=== PATIENT | female | born 1980 | race Caucasian/White ===

== ENCOUNTER → 2016-06-11 | Outpatient (CLI) | payer MEDICAID ==
[2016-06-11 10:15] LABS: Basophils # (auto) 0.1 uL; Basophils % (auto) 0.7 % (0.0-2.0); Eosinophils # (auto) 0.1 uL; Eosinophils % (auto) 1.2 % (0.0-7.0); Hematocrit 41.8 % (36.0-46.0); Hemoglobin 13.5 g/dL (12.2-16.2); Lymphocytes # (auto) 5.3 uL; Lymphocytes % (auto) 43.3 % (10.0-50.0); Mean Corpuscular Hemoglobin 27.8 pg (28.0-32.0); Mean Corpuscular Hgb Conc. 32.3 g/dL (32.0-36.0); Mean Corpuscular Volume 85.9 fL (80.0-100.0); Mean Platelet Volume 8.8 fL (7.4-10.4); Monocytes # (auto) 0.6 uL; Monocytes % (auto) 5.3 % (0.0-12.0); Neutrophils % (auto) 49.5 % (37.0-80.0); Platelet Count (auto) 243 10^3/uL (140-450); Red Cell Distribution Width 15.9 % (11.6-16.0); White Blood Cell 12.2 10^3/uL (4.4-10.8)
== END | disposition home or self-care (01) ==
LOC: LAB 09:54
PROVIDERS: ATTEND Obstetrics & Gynecology
DX: O99.810 Abnormal glucose complicating pregnancy (principal); Z3A.00 Weeks of gestation of pregnancy not specified
CPT/HCPCS: 36415; 82951; 85025; 85049

== ENCOUNTER 2016-06-13 16:25 | Observation (INO) | payer MEDICAID ==
[2016-06-14] MEDS ORDERED: PREN-96 PO (21:17)
== END 2016-06-13 17:40 | disposition home or self-care (01) | DRG 566 ==
LOC: LDRP 16:25
PROVIDERS: ADMIT Obstetrics & Gynecology; ATTEND Obstetrics & Gynecology
DX: O26.893 Other specified pregnancy related conditions, third trimester (principal); R10.9 Unspecified abdominal pain; Z3A.37 37 weeks gestation of pregnancy
CPT/HCPCS: 59025; 81002; G0378

== ENCOUNTER 2016-06-13 20:48 | Inpatient (IN) | payer MEDICAID ==
[~2016-06-13] VITALS: Ht 167.6 cm; Wt 81.6 kg
[2016-06-13] MEDS ORDERED: LACT. RINGERS/OXYTOCIN 20UNITS 1,000 ML IV SCH (20:58)
[2016-06-13] MEDS: LACTATED RINGER'S 1,000 ML IV SCH (20:58)
[2016-06-13] MEDS ORDERED: METHYLERGONOVINE MALEATE 0.2 MG/ML AMP IM PRN (21:00)
[2016-06-13] MEDS ORDERED: CARBOPROST TROMETHAMINE 250 MCG/1ML VIAL IM PRN (21:00)
[2016-06-13] MEDS ORDERED: DERMOPLAST 60ML BOTTLE TOP PRN (21:00)
[2016-06-13] MEDS ORDERED: NALBUPHINE HCL 10 MG/1ml INJECTION IV PRN (21:00)
[2016-06-13] MEDS ORDERED: LIDOCAINE 2%HCL (LOCAL ANESTH.) INJ 20ML MDV IJ ONE (21:00)
[2016-06-13] MEDS ORDERED: PROMETHAZINE HCL 25 MG/ML 1ML IV PRN (21:00)
[2016-06-13] MEDS ORDERED: WITCH HAZEL-GLYCERIN PAD TOP PRN (21:00)
[2016-06-13] MEDS ORDERED: PHISODERM TOP SOLN 240ML BTL TOP PRN (21:00)
[2016-06-13 21:43] LABS: Basophils # (auto) 0 uL; Basophils % (auto) 0.5 % (0.0-2.0); Eosinophils # (auto) 0 uL; Eosinophils % (auto) 0.4 % (0.0-7.0); Hematocrit 39.9 % (36.0-46.0); Hemoglobin 12.9 g/dL (12.2-16.2); Lymphocytes # (auto) 2.8 uL; Lymphocytes % (auto) 27.5 % (10.0-50.0); Mean Corpuscular Hemoglobin 27.9 pg (28.0-32.0); Mean Corpuscular Hgb Conc. 32.2 g/dL (32.0-36.0); Mean Corpuscular Volume 86.6 fL (80.0-100.0); Mean Platelet Volume 9.4 fL (7.4-10.4); Monocytes # (auto) 0.5 uL; Monocytes % (auto) 5.2 % (0.0-12.0); Neutrophils # (auto) 6.7 uL; Neutrophils % (auto) 66.4 % (37.0-80.0); Platelet Count (auto) 207 10^3/uL (140-450); Red Cell Distribution Width 15.5 % (11.6-16.0); White Blood Cell 10.1 10^3/uL (4.4-10.8)
[2016-06-13 22:00] LABS: Albumin 2.4 g/dL (3.4-5.0); BUN/Creatinine Ratio 12.3; Calcium 8.5 mg/dL (8.5-10.1); Potassium 3.8 mmol/L (3.5-5.1)
[2016-06-13 22:03] LABS: Bilirubin, Total 0.2 mg/dL (0.2-1.0); INR 0.97 (0.9-1.15); Partial Thromboplastin Time 25.9 sec (22.64-33.71); Total Protein 6.7 g/dL (6.4-8.2)
[2016-06-13] MEDS ORDERED: LIDOCAINE 2%HCL (LOCAL ANESTH.) INJ 20ML MDV ONE (22:19)
[2016-06-13] MEDS ORDERED: LACT. RINGERS/OXYTOCIN 20UNITS 1,000 ML IV ONE (22:19)
[2016-06-13] MEDS ORDERED: PHISODERM TOP SOLN 240ML BTL TOP ONE (22:19)
[2016-06-13] MEDS ORDERED: METHYLERGONOVINE MALEATE 0.2 MG/ML AMP IM ONE (22:19)
[2016-06-13] MEDS ORDERED: WITCH HAZEL-GLYCERIN PAD TOP ONE (22:19)
[2016-06-13] MEDS ORDERED: DERMOPLAST 60ML BOTTLE TOP ONE (22:19)
[2016-06-13] MEDS ORDERED: LACT. RINGERS/OXYTOCIN 20UNITS 500 ML IV ONE (23:06)
[2016-06-13] MEDS ORDERED: IBUPROFEN 600 MG TAB PO ONE (23:14)
[2016-06-14 02:40] VITALS: BP 114/74
[2016-06-14] MEDS ORDERED: ACETAMINOPHEN 325 MG TAB PO PRN (03:15)
[2016-06-14] MEDS ORDERED: IBUPROFEN 600 MG TAB PO PRN (03:15)
[2016-06-14] MEDS: LACTATED RINGER'S 1,000 ML IV SCH ×2 (04:58→12:58)
[2016-06-14 08:30] VITALS: BP 111/57
[2016-06-14 12:00] VITALS: BP 115/61
[2016-06-14] MEDS ORDERED: diphenhdrAMINE HCL 50 MG/1 ML VL ONE (12:08)
[2016-06-14] MEDS ORDERED: diphenhdrAMINE HCL 50 MG/1 ML VL IM ONE (12:15)
[2016-06-14 16:23] VITALS: BP 103/67
[2016-06-14 18:33] VITALS: BP 123/77
[2016-06-14] MEDS ORDERED: PREN-96 PO (21:17)
[2016-06-14 21:58] VITALS: BP 120/82
== END 2016-06-14 21:58 | disposition home or self-care (01) | DRG 560 ==
LOC: OBSVTOIN 20:48 → NUR 20:48 → LDRP 23:24
PROVIDERS: ADMIT Obstetrics & Gynecology; ATTEND Obstetrics & Gynecology
PROC: 10E0XZZ Delivery of Products of Conception, External Approach (ICD-10-PCS; principal; 2016-06-13)
DX: O77.0 Labor and delivery complicated by meconium in amniotic fluid (principal); Z37.0 Single live birth; Z3A.37 37 weeks gestation of pregnancy
CPT/HCPCS: 36415; 59025; 59409; 80053; 81002; 85025; 85049; 85610; 85730; 86850; 86900; 86901; J2590

== ENCOUNTER 2016-12-31 07:48 | Emergency (ER) | payer SELFPAY ==
[~2016-12-31] VITALS: Ht 165.1 cm; Wt 72.1 kg
[~2016-12-31 07:48] MED LIST: PREN-96 PO
[2016-12-31 07:54] VITALS: BP 120/74
[2016-12-31] MEDS ORDERED: EPINEPHrine HCL 1 MG/1 ML AMP SC ONE (08:15)
[2016-12-31] MEDS ORDERED: methylPREDNISolone SOD SUCC 125 MG/2 ML VL IM ONE (08:15)
== END 2016-12-31 09:00 | disposition home or self-care (01) ==
LOC: ER 07:48
DX: T78.40XA Allergy, unspecified, initial encounter (principal); Z91.040 Latex allergy status; Z91.018 Allergy to other foods
CPT/HCPCS: 96372; 99284; J0171; J2930